=== PATIENT | female | born 1955 | race Caucasian/White ===

== ENCOUNTER 2025-04-19 07:53 | Emergency (ER) | payer SELFPAY ==
[2025-04-19 07:58] VITALS: BP 147/89
[2025-04-19 08:10] VITALS: BMI 39.6
--- NOTE | 2025-04-19 08:29 | ED.GENMED ---
Addendum entered and electronically signed by Aelx Pederson DO 04/19/25 12:28:
Patient and family would like not to fly unless absolutely necessary
Therefore will be a delay in transport
Addendum entered and electronically signed by Alex Pederson DO 04/19/25 12:27:
12:26 PM
I am told there is no ground transport for at least 2 hours
Therefore patient will need to go by air transport
Addendum entered and electronically signed by Alex Pederson DO 04/19/25 12:23:
Patient's family request transfer to [facility] due to proximity to their home
Reviewed with trauma doctor there accepted in transport
Transfer form copy
Original Note:
History of Present Illness
General
Chief Complaint: Fall
Source: patient and records
Exam Limitations: none
Time Seen by Provider: 04/19/25 08:01
Nursing documentation reviewed up to this point in time: agreed with
History of Present Illness
History of Present Illness:
69-year-old female status post slip and fall struck her right and left knee on the ground and her face and nose, she has upper lip internal laceration little bit of bruising at her nose where she has had prior surgery for nasal fracture pain of her
bilateral knees is scheduled to see Dr. Pedraza for a right total knee replacement in May no blood thinners, mild headache no neck pain no paresthesias no alcohol no chest pain or shortness of breath, states her front teeth hurt but they are
not displaced she has got a implant in her front teeth
Past History
Past History
ED Past Medical History: Hypothyroidism
ED Past Surgical History: None
Social History
Tobacco: Non-smoker
Alcohol: None
Drug: None
Personal:
Living: with family
Employment: Employed
Review of Systems
Review of Systems
All Other Systems: Not applicable
EENT: Reports mouth pain
Respiratory: Reports no symptoms
Cardiac: Reports no symptoms; Denies syncope
ABD/GI: Reports no symptoms
: Reports no symptoms
Neurological: Reports headache; Denies dizzy
Phy Exam
Physical Exam
Physical Exam:
Physical Exam
General: no apparent distress, not acutely ill
Neck: Minimal bruising about the nose no septal hematoma, 0.5 cm flap inside the right upper lip not through the vermilion border
Heart: Regular
Lungs: no acute respiratory distress.
Abdomen: Nontender
Neuro: alert and oriented. no focal neurological deficits
Skin: no rash
Psychiatric: well kept. interactive and cooperative
Extremities: no edema. Minimal pain with range of motion of the right greater than left knee no pain with range of motion of the hip
Course
Orders/Labs/Results
Orders:
Orders
04/19/25 08:18
Knee, Left 1 or 2 Views [CR Knee - Left 1 Or 2 Views] Urgent
Comment:
Reason For Exam: fall
Knee, Right 1 or 2 Views [CR Knee - Right 1 Or 2 Views] Urgent
Comment:
Reason For Exam: fall
Nasal Bones, complete 3 Views [CR Nasal Bones Comp Min 3 View] Urgent
Comment:
Reason For Exam: fall
04/19/25 08:19
Acetaminophen [Tylenol] 1,000 mg PO NOW STA
04/19/25 09:06
Lidocaine/Epinephrine/Tetracai [Let Topical Anesthetic Gel] 3 ml TOPICAL NOW STA
04/19/25 09:56
Ricky Wrap Left-Treatment ONCE
Ricky Wrap Right-Treatment ONCE
04/19/25 10:25
CT Head W/o Iv Contrast Urgent
Comment:
Reason For Exam: fall
04/19/25 10:26
CT Cervical Spine W/o Iv Contr Urgent
Comment:
Reason For Exam: fall
CT Facial Bones W/o Iv Contras Urgent
Comment:
Reason For Exam: fall
Vital Signs
Initial and Last Documented VS:
Initial Vital Signs
Temp Pulse Resp BP Pulse Ox
97.8 F 82 16 147/89 98
04/19/25 07:58 04/19/25 07:58 04/19/25 07:58 04/19/25 07:58 04/19/25 07:58
Last Documented Vital Signs
Temp Pulse Resp BP Pulse Ox
98.5 F 84 18 159/94 98
04/19/25 09:30 04/19/25 09:30 04/19/25 09:30 04/19/25 10:24 04/19/25 10:24
Procedures
Laceration Closure
Inner lip:
Status of Wound: clean
Size of Wound in cm: 1
Description of Wound Edges: flap-poorly vascularized
Anesthesia: Topical-LET
Revision/Debridement: minor revision
Wound exploration: explored to base- no FB
Type of Closure: single layer closure
Skin Closure Material: 5-0 vicryl
Number of sutures: 3
MDM/Problems Addressed
Differential Diagnosis Includes:
Contusion knee injury lip injury nasal injury
MDM/Problems Addressed:
Fall
Chronic conditions affecting care:
OA prior nasal
Acute Exacerbation and/or Progression of Chronic Illness:
OA prior nasal fracture
*Radiology
Radiology exam reviewed: radiology read reviewed
*Pulse Oximetry
SaO2: 98
Oxygen Mode of Delivery: Room air
Patient hypoxic: no
*Principal Embedded Software Engineer Interpretation
Rate: normal
Interpretation: normal
Heart Rate: 78
Rhythm: sinus
*Critical Care Note
Total Time (30-74mins, 75-104mins- exclusive of procedures): 32
Update Note
Update Note:
9:30 AM x-ray reports noted will refer back to her orthopedist who she is seeing for total knee replacement also to her plastic surgeon who cared for her nose [employer] will close her intraoral lip wound
10:30 AM patient now with headache, questioning loose dentition will check CT head C-spine facial bones
1145 CT reviewed with radiology
ED Attending Note
-
Portions of this chart may have been created with voice recognition software.� Occasional wrong word or��sound alike� substitutions may have occurred due to the inherent limitations of voice recognition software.
Discharge Plan
Departure
Patient Disposition: Acute Care Hospital
Date of Disposition: 04/19/25
Time of Disposition: 12:03
Patient with high blood pressure during this ER visit?: No
Condition: Fair
Discharge Problem:
Closed fracture nasal bone, Acute intracerebral hemorrhage
Instructions: Contusion (DC), Laceration Repair With Stitches (DC), Preventing falls in adults, Nose Fracture ED
Prescriptions:
New
oxycodone-acetaminophen [Percocet] 5-325 mg tablet
1 tab PO Q6HPRN PRN (Reason: pain) Qty: 10 0RF
No Action
levothyroxine 150 mcg Tablet
150 mcg PO DAILY
cholecalciferol (vitamin D3) [Vitamin D3] 25 mcg (1,000 unit) Capsule
25 mcg PO DAILY
Referrals:
Bradley Pedraza MD [Active, Orthopedics] - Follow up in 2-3 days
Mimi Somers PA [Family Provider, Family Practice]
Siddhartha Vinson MD [Active, Plastic Surgery] - Follow up in 5-7 days
Activity Restrictions/Additional Instructions:
Rest ice areas that hurt stitches will dissolve in about a week
Follow-up with your plastic surgeon and orthopedist
Hospital Transfer
Other hospital: [facility]
I certify that the patient requires transfer: Yes
Discussed case with accepting physician: trauma
Reason for transfer: higher level of care
Interventions
Interventions:
*Risk Screen - Suicide Last Done: 04/19/25 07:58
*General Assessment Last Done: 04/19/25 07:58
*Neglect/Abuse Screening Last Done: 04/19/25 07:58
*ED COVID-19 Vaccine History Last Done: 04/19/25 07:58
ED-Musculoskeletal Assessment Last Done: 04/19/25 08:10
ED- Neurological Assessment Last Done: 04/19/25 08:10
ED-Skin Assessment Last Done: 04/19/25 08:10
Discharge Date and Time
Print Language: KHMER
[2025-04-19] MEDS: TYLENOL 1000 MG PO (08:30)
[2025-04-19] MEDS: LET TOPICAL ANESTHETIC GEL 3 ML TOPICAL (09:25)
[2025-04-19 09:30] VITALS: BP 159/94
[2025-04-19 10:24] VITALS: BP 159/94
[2025-04-19 12:56] VITALS: BP 162/96
[2025-04-19] MEDS: MORPHINE SULFATE 4 MG IV (13:09)
[2025-04-19 13:13] LABS: Hematocrit 42.0 % (37.0-47.0); Hemoglobin 13.9 g/dL (12.0-16.0); Mean Corp Hgb Conc. 33.1 g/dL (33.0-37.0); Mean Corpuscular Volume 90.5 fL (81.0-99.0); Nucleated Red Blood Cells % 0 %; Platelet Count 292 10^3/uL (130-400); Red Cell Dist. Width 13.7 % (11.5-14.5)
[2025-04-19 14:00] VITALS: BP 164/80; BP 164/87
[2025-04-19 14:04] LABS: ALT (SGPT) 18 U/L (0-35); AST (SGOT) 24 U/L (14-36); Albumin 4.4 g/dl (3.5-5.0); Alkaline Phosphatase 111 U/L (38-126); Blood Urea Nitrogen 14 mg/dl (7-17); Calcium 9.6 mg/dl (8.4-10.2); Carbon Dioxide 22 mmol/L (22-30); Chloride 109 mmol/L (98-107); Estimated Creatinine Clearance 116 ml/min; Glucose 109 mg/dl (70-99); Potassium 4.0 mmol/L (3.5-5.1); Sodium 139 mmol/L (135-145); Total Protein 7.8 g/dl (6.3-8.2); eGFR > 60.00
--- NOTE | 2025-04-19 15:15 | EDRN ---
Report called to CHERISE Plascencia at [facility]. Report given to [facility] staff.
[2025-04-19 15:17] VITALS: BP 164/80
== END 2025-04-19 15:00 | disposition short-term general hospital (02) ==
LOC: EMR 07:53
PROVIDERS: EMERGENCY PHYSICIAN Emergency Medicine; FAMILY PHYSICIAN Physician Assistant Medical
DX: S06.36AA Traumatic hemorrhage of cerebrum, unspecified, with loss of consciousness status unknown, initial encounter (principal); S02.2XXA Fracture of nasal bones, initial encounter for closed fracture; S01.511A Laceration without foreign body of lip, initial encounter; S00.33XA Contusion of nose, initial encounter; W01.0XXA Fall on same level from slipping, tripping and stumbling without subsequent striking against object, initial encounter; Y93.01 Activity, walking, marching and hiking; Y92.89 Other specified places as the place of occurrence of the external cause; Y99.0 Civilian activity done for income or pay; E03.9 Hypothyroidism, unspecified
CPT/HCPCS: 99291; 96374; 70160; 70450; 70486; 72125; 73560; 80053; 82077; 85025; 93005

== ENCOUNTER → 2025-05-28 15:20 | Outpatient (REF) | payer MEDICARE, SELFPAY | LOC: RAD 15:20 | PROVIDERS: ATTENDING PHYSICIAN Psychiatry & Neurology Neurology; FAMILY PHYSICIAN Physician Assistant Medical | DX: S06.5XAA Traumatic subdural hemorrhage with loss of consciousness status unknown, initial encounter (principal) | CPT/HCPCS: 70450 ==

== ENCOUNTER 2025-09-02 11:36 | Emergency (ER) | payer MEDICARE, SELFPAY ==
[2025-09-02 11:40] VITALS: BP 207/103
[2025-09-02 12:25] LABS: Urine Character Clear (Clear)
[2025-09-02 12:40] LABS: Urine Squamous Cell >30 /LPF (Few)
[2025-09-02 12:41] LABS: Urine Red Blood Cell 0-2 /HPF (0-2)
--- NOTE | 2025-09-02 14:00 | ED.GENMED ---
History of Present Illness
General
Chief Complaint: Back Pain
Time Seen by Provider: 09/02/25 13:03
History of Present Illness
History of Present Illness:
70-year-old female presents to the emergency department for evaluation of right lower back pain for the past 3 weeks. Went to her primary care physician office where she was noted to have calcium oxalate crystals in the urine and thus was sent to
the ED for further evaluation possible kidney stone. Pain is mild at this time. Has improved with a course of steroids. No fevers or chills
Past History
Past History
ED Past Medical History: Hypothyroidism
ED Past Surgical History: None
Social History
Tobacco: Non-smoker
Alcohol: None
Drug: None
Personal:
Living: with family
Employment: Employed
Review of Systems
Review of Systems
Allergies reviewed?: Yes
All Other Systems: ROS reviewed and negative except as documented in HPI and ROS
Phy Exam
Physical Exam
Physical Exam:
GEN: Well appearing, NAD, WDWN
HEENT: Oral mucosa moist, no scleral icterus
Cardiac: Regular rate
Lung: No respiratory distress, no tachypnea
MSK: No gross deformity or injuries; grossly non tender to palpation of lumbar spinous processes and paraspinous musculature
Skin: Good color, no pallor or jaundice, no rashes
Neuro: AO x3, moves all extremities freely
Psych: Calm, cooperative
Course
Orders/Labs/Results
Orders:
Orders
09/02/25 12:14
UA Reflex to Culture [Urinalysis Reflex To Culture] Urgent
Date Specimen was Collected: 09/02/25
Time Specimen was Collected: 11:42
Urine Microscopic Reflex Cult Urgent
Urine Culture Urgent
SUSAN Source: U
Specimen Description:
Date Specimen was Collected: 09/02/25
Time Specimen was Collected: 11:42
09/02/25 13:19
CT Abd/pel Without Iv Or Oral Urgent
Comment:
Reason For Exam: R flank pain
Abnormal Lab Results
09/02/25
12:14
Leukocyte Esterase Rfl 2+ A
(Negative)
Urine Bacteria (Reflex) Few A
(Negative)
Urine Albumin (Reflex) 1+ A
(Neg - Trace)
Vital Signs
Initial and Last Documented VS:
Initial Vital Signs
Temp Pulse Resp BP Pulse Ox
97.4 F 73 19 207/103 97
09/02/25 11:40 09/02/25 11:40 09/02/25 11:40 09/02/25 11:40 09/02/25 11:40
Last Documented Vital Signs
Temp Pulse Resp BP Pulse Ox
97.4 F 70 16 207/103 98
09/02/25 11:40 09/02/25 16:33 09/02/25 16:33 09/02/25 11:40 09/02/25 16:33
*Pulse Oximetry
SaO2: 97
Oxygen Mode of Delivery: Room air
Patient hypoxic: no
*Critical Care Note
Total Time (30-74mins, 75-104mins- exclusive of procedures): Not Applicable
ED Attending Note
-
Portions of this chart may have been created with voice recognition software.� Occasional wrong word or��sound alike� substitutions may have occurred due to the inherent limitations of voice recognition software.
Discharge Plan
Departure
Patient Disposition: Home (Routine Discharge)
Date of Disposition: 09/02/25
Time of Disposition: 16:25
Patient with high blood pressure during this ER visit?: No
Condition: Good
Covid-19: Not Applicable
Discharge Problem:
Back pain
Instructions: Cold therapy for pain, Musculoskeletal Pain
Prescriptions:
No Action
levothyroxine 150 mcg Tablet
150 mcg PO DAILY
cholecalciferol (vitamin D3) [Vitamin D3] 25 mcg (1,000 unit) Capsule
25 mcg PO DAILY
oxycodone-acetaminophen [Percocet] 5-325 mg tablet
1 tab PO Q6HPRN PRN (Reason: pain) Qty: 10 0RF
Referrals:
Mimi Somers PA [Family Provider, Family Practice] - Follow up in 2-3 days
Activity Restrictions/Additional Instructions:
As we discussed your CT scan revealed a right lung nodule. It was recommended that CT scan be repeated in 12 months for follow-up. Please follow-up with your family doctor for further evaluation and guidance.
Interventions
Interventions:
*General Assessment Last Done: 09/02/25 11:40
*Neglect/Abuse Screening Last Done: 09/02/25 11:40
*Risk Screen - Suicide (C-SSRS) Last Done: 09/02/25 11:40
*Nursing Disposition Last Done: 09/02/25 16:34
Discharge Date and Time
Discharge Date/Time: 09/02/25 16:39
Print Language: CYMRO
== END 2025-09-02 16:39 | disposition home or self-care (01) ==
LOC: EMR 11:36
PROVIDERS: Emergency Medicine; EMERGENCY PHYSICIAN Emergency Medicine; FAMILY PHYSICIAN Physician Assistant Medical
DX: M54.50 Low back pain, unspecified (principal); E03.9 Hypothyroidism, unspecified
CPT/HCPCS: 99284; 74176; 81003; 81015; 87086